=== PATIENT | male | born 1975 ===

== ENCOUNTER 2025-04-30 09:35 | Outpatient (CLI) | payer BC ==
[~2025-04-30 09:35] MED LIST: Iopamidol-M 200 41% 20 ML VIAL ONE
== END 2025-04-30 09:36 | disposition home or self-care (01) ==
LOC: CT 09:35
PROVIDERS: ATTEND Internal Medicine Hematology & Oncology
DX: C18.7 Malignant neoplasm of sigmoid colon (principal); K22.89 Other specified disease of esophagus; Z90.49 Acquired absence of other specified parts of digestive tract
CPT/HCPCS: 71260; 74177; Q9966